=== PATIENT | male | born 1950 | race African-American/Black ===

== ENCOUNTER 2017-03-26 20:54 | Emergency (ER) | payer OTHER ==
[~2017-03-26 20:54] MED LIST: ALLERGY10 M2 PO; AMLODIPINE BESY10 MG PO; ASPIRIN EC81 M1 PO; FERRO-TIME325 MG PO; GNP B-COMPLEX1 EACH PO; LISINOPRIL-HCTZ1 T16 PO; METFORMIN HCL500 M1 PO; [UNRECOGNIZED DRUG - OTHER] PO
[2017-03-26] MEDS ORDERED: SUPER B COMPLE150 MG PO (21:23)
[2017-03-26] MEDS ORDERED: FISH OIL300 MG PO (21:24)
[2017-03-26 22:10] LABS: BASOPHIL# 0.2 X10e3 (0-0.3); BASOPHIL% 1.9 % (0-2.5); EOSINOPHIL# 0.7 X10e3 (0-0.7); HEMATOCRIT 30.7 % (38.0-50.0); HEMOGLOBIN 9.4 gm/dL (13.0-16.0); LYMPHOCYTE# 1.8 X10e3 (1.0-3.5); LYMPHOCYTE% 14.9 % (17.0-45.0); MEAN CELL VOLUME 85.4 FL (83-96); MEAN CORPUSCULAR HEMOGLOBIN 26.1 PG (28-34); MEAN CORPUSCULAR HGB CONC 30.5 g/dL (30-36); MEAN PLATELET VOLUME 8.9 FL (6.5-11.5); MONOCYTE# 1.2 X10e3 (0-1.0); MONOCYTE% 10.2 % (3.0-12.0); PLATELET COUNT 338 X10e3 (140-420); RED BLOOD COUNT 3.59 X10e (3.90-5.60); RED CELL DISTRIBUTION WIDTH 15.1 % (11.0-15.5); WHITE BLOOD COUNT 11.8 X10e3 (4.0-10.5)
[2017-03-26 22:12] LABS: DIFF IND NO
[2017-03-26 22:31] LABS: ALBUMIN SERUM 3.8 g/dL (3.5-5.0); BILIRUBIN,TOTAL 0.2 mg/dL (0.2-2.0); BUN/CREATININE RATIO 9.28; CALCIUM SERUM 8.9 mg/dL (8.4-10.2); CREATININE SERUM 1.4 mg/dL (0.6-1.4); GLOM FILT RATE Estimated 59.4 mL/min (>60); POTASSIUM 3.6 mmol/L (3.5-5.1); PROTEIN TOTAL SERUM 7.4 g/dL (6.0-8.3)
== END 2017-03-26 23:06 | disposition home or self-care (01) ==
LOC: SED 20:54
DX: D64.9 Anemia, unspecified (principal); I10 Essential (primary) hypertension; E11.9 Type 2 diabetes mellitus without complications; Z87.891 Personal history of nicotine dependence
CPT/HCPCS: 36415; 80053; 85025; 99283

== ENCOUNTER 2017-05-07 21:43 | Emergency (ER) | payer OTHER ==
[~2017-05-07 21:43] MED LIST changes: +FISH OIL300 MG PO; +SUPER B COMPLE150 MG PO
== END 2017-05-07 23:43 | disposition home or self-care (01) ==
LOC: SED 21:43
DX: J03.00 Acute streptococcal tonsillitis, unspecified (principal); I10 Essential (primary) hypertension; E11.9 Type 2 diabetes mellitus without complications
CPT/HCPCS: 87880; 99283